=== PATIENT | male | born 1995 | race American Indian/Alaskan Native ===

== ENCOUNTER 2016-12-02 04:09 | Emergency (ER) | payer SELFPAY ==
[2016-12-02 04:33] VITALS: BP 115/77
--- NOTE | 2016-12-02 14:57 | ED Elopement Review ---
ED Pt Elopement review - Call Back decision Pt Call Back Decision: No action required
== END 2016-12-02 04:32 | disposition left against medical advice (07) ==
LOC: ED 04:09
DX: R07.9 Chest pain, unspecified (principal); Z53.21 Procedure and treatment not carried out due to patient leaving prior to being seen by health care provider
CPT/HCPCS: 93005; 93010